=== PATIENT | male | born 1960 | race Caucasian/White ===

== ENCOUNTER 2016-12-03 14:46 | Emergency (ER) | payer OTHER ==
--- NOTE | 2016-12-03 15:46 | DIAGNOSTIC IMAGING REPORT ---
PROCEDURE: US VENOUS - RIGHT EXT INDICATION: SWELLING TECHNIQUE: Duplex sonography of the deep venous system in the right lower extremity was performed. Compression and augmentation techniques were used. COMPARISON: None. FINDINGS: Each interrogated segment of deep vein from the common femoral vein into the calf veins demonstrates normal compressibility, augmentation and/or color Doppler flow without filling defect. No evidence of significant soft-tissue edema, soft-tissue mass or cyst. IMPRESSION: 1. No deep venous thrombosis in the right lower extremity.
--- NOTE | 2016-12-03 16:28 | DIAGNOSTIC IMAGING REPORT ---
PROCEDURE: XR CHEST 1 VIEW INDICATION: SHORTNESS OF BREATH TECHNIQUE: Portable AP view (1610 hours). COMPARISON: None. FINDINGS: Allowing for suboptimal inspiration, lungs are clear. Heart and mediastinum are normal. Mild to moderate degenerative change of the thoracic spine. IMPRESSION: 1. Negative chest.
--- NOTE | 2016-12-03 18:06 | ED NURSING NOTES ---
Clinical Report - Nurses [facility] [address] [place] [address] 12/03/2016 14:48 Patient: OTTONIEL CAMPOS TRIAGE Chief Complaint: (pt in c/o pain to right food due to swelling, states swelling has been getting worse over the last month- states swlling in right leg is up to his knee, and left leg is also starting to swell). --15:07 Christina Holden R.N. 14:59 12/03/16. BP: 151/68. HR: 88. RR: 32. O2 saturation: 98% on room air. Temp: 97.9 F. Pain level now: 12/10. --15:07 Christina Holden R.N. Acuity: LEVEL 3. --15:07 Christina Holden R.N. Weight: 127 kg stated. Height/Length: 69 inches Per Patient. BMI: 41.4. --15:02 Christina Holden R.N. Medications Tudorza 400mcg. --15:15 Christina Holden R.N. Atenolol Oral 25 mg, daily. LamoTRIgine Oral (Tablet Dispersible 25 mg) 1 tablet, daily . PARoxetine HCl Oral (Tablet 10 mg) 1 tablet, daily. Phenytoin Oral 100 mg, 2x a day. Qvar Inhalation (Aerosol Solution 40 mcg/act). TraZODone HCl Oral 50 mg. --15:16 Christina Holden R.N. Ventolin HFA Inhalation. --15:16 Christina Holden R.N. Allergies morphine.(Anaphylaxis) --15:07 Christina Holden R.N. Penacillin- doesn't remember. --15:07 Christina Holden R.N. Codeine- GI upset. --15:08 Christina Holden R.N. History SURGERY HX: Laparotomy. Tonsillectomy. ( vein surg both ankles, cardiac stent). SOCIAL HX: Smoker- current status unknown (2ppd for 47 years, this is down from 4 ppd). No alcohol use or drug use. --15:07 Christina Holden R.N. PROBLEMS: Boarderline diabetic. --15:03 Christina Holden R.N. Myocardial Infarction. CVA - Cerebrovascular Accident. --15:03 Christina Holden R.N. 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 Hypertension. Bipolar Disorder. COPD - Chronic Obstructive Pulmonary Disease. --15:05 Christina Holden R.N. Seizure. --16:20 Christina Holden R.N. Interventions ID band on patient. To treatment room. --15:07 Christina Holden R.N. PHYSICAL ASSESSMENT 15:05. Ambulatory to room. Patient gowned. GENERAL / NEURO / PSYCH: Alert. Appears anxious. HEENT: Mucous membranes are pink. RESPIRATORY: Moderate respiratory distress. The patient can speak in full sentences. CVS: Capillary refill less than 2 seconds. GI / : Abdomen soft. SKIN: Skin is warm and dry. Swelling. ( Pt had 1+ tibial edema on right leg. c/o burning and tightness to right leg, and "starting to get tight" in the left leg). --15:10 Christina Holden R.N. NURSING PROGRESS NOTES 15:05. Oxygen administered. Monitoring of patient in place. Patient gowned. Head of bed elevated. Reassurance given. Patient identifiers checked. Call light placed in reach. Side rails up. Bed placed in lowest position. Patient ready for evaluation- chart flagged. --15:08 Christina Holden R.N. EKG time: (1521). EKG was ordered, performed by a tech and shown to the ED physician. --15:25 Victor Manuel Elizalde, MARY LOU Tech1 15:23. ( US at bedside to do exam). --15:26 Christina Holden R.N. 16:00 12/03/2016 Site #1 started via IV in the right hand with an 24g angiocath, with aseptic technique and good blood return; one attempt. Blood drawn: rainbow set and cultures x1. Labeled in the presence of the patient and sent to the lab. Saline lock flushed with saline. --16:18 Christina Holden R.N. 16:00. ( IV start and lab drawn). --16:19 Christina Holden R.N. 16:08. Portable chest x-ray ordered, performed and shown to the ED physician. --16:19 Christina Holden R.N. 17:04 12/03/16. Cardiac rhythm: sinus rhythm. The patient is resting quietly. Overall patient status is the same- he states feels the same. RESPIRATORY: No respiratory distress. SKIN: Skin is warm and dry. --17:04 Radha Bills R.N. 17:02 12/03/16. BP: 149/81. HR: 77. RR: 24. O2 saturation: 94% on room air. Pain level now: 0/10. --17:04 Radha Bills R.N. 17:40. ( Pt ambulated across simpson to bathroom, slight increase in resp effort noted. UA sent to lab. Pt asking when he gets to go home. ERMD notified). --17:53 Christina Holden R.N. 18:05 12/03/2016 Site #1 removed upon discharge. Bandaid applied. --18:39 Christina Holden R.N. 17:45 12/03/16. BP: 131/77. HR: 92. RR: 32. O2 saturation: 98% on room air. Temp: deferred. Pain level now: 0/10. Additional comments: watching t v in no acute distress. --18:49 Christina Holden R.N. DISPOSITION / DISCHARGE 18:15. Condition at departure: stable. No learning barriers present. Discharge instructions provided and reviewed with the patient. Reviewed medication(s) (cont home meds). Reviewed referrals (follow up with your PCP for further work up). Patient verbalized understanding. Written instructions provided in Icelandic. The patient was discharged home and unaccompanied at time of discharge. He left the Emergency Department ambulatory and via private vehicle. Patient driving. --18:47 Christina Holden R.N. 18:15 12/03/16. BP: 130/82. HR: 76. RR: 18. O2 saturation: 97% on room air. Temp: deferred. Pain level now: 0/10. --18:47 Christina Holden R.N. Locked/Released at 12/03/2016 18:49 by Christina Holden R.N.
--- NOTE | 2016-12-03 18:06 | ED ORDER SUMMARY ---
..... Patient: OTTONIEL CAMPOS OrderSheet Merged With [facility] VisitID: [id number] [address] [place] [address] 56y, M Registration Date/Time: 12/03/2016 ORDER SHEET Weight: 127.0 kg (stated) Allergies: morphine, Penacillin- doesn't remember, Codeine- GI upset GENERAL ORDERS: US Venous Right Urgent (15:15 12/03/2016 Hanna NATH) (Ack 15:17 AMNAoeralec) (16:17 DDean R.N.) EKG - ER Stat (15:23 12/03/2016 DDean R.N. per protocol) (15:26 PWeiler ER Tech1) Chest 1V Urgent (15:52 12/03/2016 Hanna NATH) (Ack 15:54 AMNAoerner) (16:18 DDean R.N.) Hydraulic Repairer (Continuous) (15:52 12/03/2016 Hanna NATH) (16:17 DDean R.N.) Cardiac Panel Stat (15:52 12/03/2016 Hanna NATH) (Ack 15:54 AMNAoerner) (16:17 KHoerner) BNP Urgent (15:52 12/03/2016 Hanna NATH) (Ack 15:54 AMNAoerner) (16:17 KHoerner) Pulse oximeter (15:52 12/03/2016 Hanna NATH) (16:17 DDean R.N.) MEDICATION ORDERS: IV FLUIDS: IV Saline Lock (15:52 12/03/2016 Hanna NATH) (16:18 DDean R.N.) ORDER SHEET NOTES: [Electronically signed by Christina Holden R.N. (18:49 12/03/2016)] [Electronically signed by Sigrid Pereira MD (14:15 12/13/2016)] [Electronically locked/signed by Christina Holden R.N. (18:49 12/03/2016)]
--- NOTE | 2016-12-03 18:06 | ED CLINICAL REPORT ---
Clinical Report - Physicians/Mid Levels [facility] [address] [place] [address] 12/03/2016 14:48 Patient: OTTONIEL CAMPOS Time Seen: 14:58. Arrived- By private vehicle. Historian- patient. HISTORY OF PRESENT ILLNESS Chief Complaint: DYSPNEA and LE swelling. This started about 1 month ago and is still present and worsening. The dyspnea is described as moderate. The dyspnea is worsened by walking (Elevation improves.). No cough, sputum production, fever, sweating episodes or wheezing. No chills, chest pain or discomfort, calf pain or anxiety. No dizziness, tingling, numbness or palpitations. He has had dyspnea on exertion and foot swelling. (Pt states the swelling has been most prominent on the R, but now involves the L, also.). Similar symptoms previously: Recent medical care: Not recently seen/assessed. REVIEW OF SYSTEMS The patient has not had weight loss. No muscle aches, eye irritation, sore throat, nasal discharge or sinus drainage. No nausea, vomiting, abdominal pain, diarrhea or black stools. No bloody stools, headache, fainting episodes, blurred vision or difficulty with urination. No skin rash, enlarged lymph nodes or joint pain. All systems otherwise negative, except as recorded above. 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 Hypertension. Bipolar Disorder. COPD - Chronic Obstructive Pulmonary Disease. Myocardial Infarction. CVA - Cerebrovascular Accident. Boarderline diabetic. Additional Surgeries: Laparotomy. Tonsillectomy. Medications: Ventolin HFA Inhalation. Atenolol Oral 25 mg, daily. LamoTRIgine Oral (Tablet Dispersible 25 mg) 1 tablet, daily . PARoxetine HCl Oral (Tablet 10 mg) 1 tablet, daily. Phenytoin Oral 100 mg, 2x a day. Qvar Inhalation (Aerosol Solution 40 mcg/act). TraZODone HCl Oral 50 mg. Tudorza 400mcg. Allergies: Codeine- GI upset. morphine.(Anaphylaxis) Penacillin- doesn't remember. SOCIAL HISTORY Heavy tobacco smoker. No alcohol use or drug use. ADDITIONAL NOTES The nursing notes have been reviewed. PHYSICAL EXAM Vital Signs: 12/03/2016 14:59 BP: 151/68. HR: 88. RR: 32. O2 saturation: 98%. Temp: 97.9 F. Pain level now: 12/10. Have been reviewed. Appearance: Alert. No acute distress. Eyes: Pupils equal, round and reactive to light. Eyes normal inspection. ENT: Nose normal. Neck: Normal inspection. CVS: Normal heart rate and rhythm. Heart sounds normal. Pulses normal. Respiratory: No respiratory distress. Breath sounds normal. Abdomen: Soft and nontender. Back: Normal inspection. Skin: Skin warm and dry. Normal skin color. No rash. Normal skin turgor. Extremities: Bilateral moderate non-pitting edema of the lower extremities involving both feet, both ankles and both lower legs. Extremities exhibit normal ROM. Neuro: Oriented X 3. No motor deficit. No sensory deficit. LABS, X-RAYS, AND EKG EKG: EKG time: (152). No acute process. Normal EKG. Normal sinus rhythm. Rate: 85. Normal P waves. Normal GENARO. Normal QRS complex. Normal axis. Normal ST and T waves, QT and QTc. Prior EKG unavailable. The study has been interpreted contemporaneously by me. The study has been independently viewed by me. The EKG appears to be a good tracing. I agree with and confirm the computer reading of the EKG. Rhythm Strip #1: Time: (1516). Rate= 87. Normal sinus rhythm. Regular rhythm. Narrow QRS complexes. No ectopy. Conduction normal. Normal ST segments and T waves. The study was interpreted by me. Chest X-ray: No acute disease. Normal lung markings present. Normal heart size. Mediastinum normal. Great vessels normal. Soft tissues normal. No infiltrate. No fracture. No bony lesion present. Views: AP (portable). Technique: good. The X-rays were independently viewed by me, interpreted by the radiologist and contemporaneously by me and discussed with the radiologist. Prior films were not available for comparison. Lower Extremity Sonography: Negative exam. No compression abnormality noted. Visualized common femoral artery and common femoral vein, superficial femoral artery and superficial femoral vein, deep femoral artery and deep femoral vein and popliteal artery and popliteal vein. Vessels patent. Study type: utilized duplex sonography. The exam was performed by a small engine technician. The study was interpreted by the radiologist and discussed with the radiologist. Prior studies were not available for comparison. Laboratory Tests: CBC w Diff: (AN: 12/03/2016 16:00) ( [facility] 12/03/2016 16:28) Final results Test Result Flag Units (Reference) WHITE BLOOD COUNT 9.0 K/uL (4.5-11.5) RED BLOOD COUNT 4.88 M/uL (4.50-5.90) HEMOGLOBIN 13.9 gm/dL (13.5-17.5) HEMATOCRIT 42.1 % (41.0-53.0) MEAN CELL VOLUME 86 fL (80-100) MEAN CORPUSCULAR HGB 28 pg (26-34) MEAN CORPUSCULAR HGB CONC 33 g/dL (31-37) RED CELL DISTRIBUTION WIDTH 14.4 % (11.6-14.8) PLATELET COUNT 212 K/uL (150-400) NEUTROPHIL % 61.5 % (50-75) LYMPH % 26.5 % (25-40) MONO % 8.3 % (3-14) EOSINOPHIL % 3.2 % (0-4) BASOPHIL % 0.5 % (0-2) BNP: (AN: 12/03/2016 16:00) ( [facility] 12/03/2016 16:50) Final results Test Result Flag Units (Reference) B-TYPE NATRIURETIC PEPTIDE 7.4 pg/ml (5-100) CHEM 13 PANEL: (AN: 12/03/2016 16:00) ( [facility] 12/03/2016 16:52) Final results Test Result Flag Units (Reference) GLUCOSE 101 mg/dL (70-110) BUN 15 mg/dL (7-18) CREATININE 0.7 mg/dL (0.6-1.3) Estimated GFR >60 mL/min Estimated GFR- >60 mL/min Note: Persistent reduction over 3 months in eGFR<60 mL/min/1.73 m2 defines CKD. Patients with eGFR values>=60 mL/min/1.73 m2 may also have CKD if evidence ofpersistent proteinuria. Additional information may be foundat www.kidney.org. SODIUM 142 mmol/L (136-145) POTASSIUM 4.4 mmol/L (3.5-5.1) CHLORIDE 104 mmol/L (98-107) CARBON DIOXIDE 33 H mmol/L (21-32) CALCIUM 8.8 mg/dL (8.5-10.1) TOTAL PROTEIN 7.1 g/dL (6.4-8.2) ALBUMIN 3.4 g/dL (3.3-5.0) BILIRUBIN, TOTAL 0.3 mg/dL (0.0-1.0) ALKALINE PHOSPHATASE 75 U/L (46-116) AST (SGOT) 12 L U/L (15-37) ALT (SGPT) 21 U/L (12-78) MAGNESIUM 2.2 mg/dL (1.8-2.4) CPK 38 U/L (24-260) TROPONIN I 0.05 ng/mL (0.00-1.5) TROPONIN REFERENCE RANGE:<0.1 NEGATIVE0.1-1.5 INDETERMINANT>1.5 POSITIVE . Pulse Oximetry: 12/03/2016 14:59 O2 saturation: 98%. (FIO2 - room air). Interpretation: normal. PROGRESS AND PROCEDURES Course of Care: Pt was worked up for his swelling, with consideration of CHF, renal failure, and DVT, among other things. Work-up was negative. No emergent condition identified. I have encouraged the pt to follow up with his PCP for further evaluation and treatment. Patient counseled in person regarding the patient's stable condition, test results, diagnosis and need for follow-up. Concerns were addressed. Old medical records reviewed. Disposition: Discharged. Condition: stable. CLINICAL IMPRESSION Bilateral pedal edema (right>left). INSTRUCTIONS Warnings: GENERAL WARNINGS: Return or contact your physician immediately if your condition worsens or changes unexpectedly, if not improving as expected, or if other problems arise. Your Current Medications: CONTINUE TAKING THE FOLLOWING MEDICATIONS: Atenolol Oral : 25 mg daily. LamoTRIgine Oral : Tablet Dispersible 25 mg, 1 tablet daily. PARoxetine HCl Oral : Tablet 10 mg, 1 tablet daily. Phenytoin Oral : 100 mg 2x a day. Qvar Inhalation : Aerosol Solution 40 mcg/act. TraZODone HCl Oral : 50 mg. Tudorza 400mcg*. Ventolin HFA Inhalation. Follow-up: Follow up with your doctor. Call for the next available appointment. Reason for referral: follow up ER visit. Understanding of the discharge instructions verbalized by patient. (Electronically signed by Sigrid Pereira MD 12/13/2016 14:15)
--- NOTE | 2016-12-03 18:06 | ED ORDER SUMMARY ---
..... Patient: OTTONIEL CAMPOS OrderSheet [facility] VisitID: [id number] [address] [place] [address] 56y, M Registration Date/Time: 12/03/2016 ORDER SHEET Weight: 127.0 kg (stated) Allergies: morphine, Penacillin- doesn't remember, Codeine- GI upset GENERAL ORDERS: US Venous Right Urgent (15:15 12/03/2016 Hanna NATH) (Ack 15:17 AMNAoeralec) (16:17 DDean R.N.) EKG - ER Stat (15:23 12/03/2016 DDean R.N. per protocol) (15:26 PWeiler ER Tech1) Chest 1V Urgent (15:52 12/03/2016 Hanna NATH) (Ack 15:54 AMNAoerner) (16:18 DDean R.N.) Disease Management Nurse (Continuous) (15:52 12/03/2016 Hanna NATH) (16:17 DDean R.N.) Cardiac Panel Stat (15:52 12/03/2016 Hanna NATH) (Ack 15:54 AMNAoerner) (16:17 KHoerner) BNP Urgent (15:52 12/03/2016 Hanna NATH) (Ack 15:54 AMNAoerner) (16:17 KHoerner) Pulse oximeter (15:52 12/03/2016 Hanna NATH) (16:17 DDean R.N.) MEDICATION ORDERS: IV FLUIDS: IV Saline Lock (15:52 12/03/2016 Hanna NATH) (16:18 DDean R.N.) ORDER SHEET NOTES: [Electronically signed by Christina Holden R.N. (18:49 12/03/2016)] [Electronically signed by Sigrid Pereira MD (14:15 12/13/2016)] [Electronically locked/signed by Christina Holden R.N. (18:49 12/03/2016)]
--- NOTE | 2016-12-03 18:06 | ED CLINICAL REPORT ---
Clinical Report - Physicians/Mid Levels [facility] [address] [place] [address] 12/03/2016 14:48 Patient: OTTONIEL CAMPOS Time Seen: 14:58. Arrived- By private vehicle. Historian- patient. HISTORY OF PRESENT ILLNESS Chief Complaint: DYSPNEA and LE swelling. This started about 1 month ago and is still present and worsening. The dyspnea is described as moderate. The dyspnea is worsened by walking (Elevation improves.). No cough, sputum production, fever, sweating episodes or wheezing. No chills, chest pain or discomfort, calf pain or anxiety. No dizziness, tingling, numbness or palpitations. He has had dyspnea on exertion and foot swelling. (Pt states the swelling has been most prominent on the R, but now involves the L, also.). Similar symptoms previously: Recent medical care: Not recently seen/assessed. REVIEW OF SYSTEMS The patient has not had weight loss. No muscle aches, eye irritation, sore throat, nasal discharge or sinus drainage. No nausea, vomiting, abdominal pain, diarrhea or black stools. No bloody stools, headache, fainting episodes, blurred vision or difficulty with urination. No skin rash, enlarged lymph nodes or joint pain. All systems otherwise negative, except as recorded above. 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 Hypertension. Bipolar Disorder. COPD - Chronic Obstructive Pulmonary Disease. Myocardial Infarction. CVA - Cerebrovascular Accident. Boarderline diabetic. Additional Surgeries: Laparotomy. Tonsillectomy. Medications: Ventolin HFA Inhalation. Atenolol Oral 25 mg, daily. LamoTRIgine Oral (Tablet Dispersible 25 mg) 1 tablet, daily . PARoxetine HCl Oral (Tablet 10 mg) 1 tablet, daily. Phenytoin Oral 100 mg, 2x a day. Qvar Inhalation (Aerosol Solution 40 mcg/act). TraZODone HCl Oral 50 mg. Tudorza 400mcg. Allergies: Codeine- GI upset. morphine.(Anaphylaxis) Penacillin- doesn't remember. SOCIAL HISTORY Heavy tobacco smoker. No alcohol use or drug use. ADDITIONAL NOTES The nursing notes have been reviewed. PHYSICAL EXAM Vital Signs: 12/03/2016 14:59 BP: 151/68. HR: 88. RR: 32. O2 saturation: 98%. Temp: 97.9 F. Pain level now: 12/10. Have been reviewed. Appearance: Alert. No acute distress. Eyes: Pupils equal, round and reactive to light. Eyes normal inspection. ENT: Nose normal. Neck: Normal inspection. CVS: Normal heart rate and rhythm. Heart sounds normal. Pulses normal. Respiratory: No respiratory distress. Breath sounds normal. Abdomen: Soft and nontender. Back: Normal inspection. Skin: Skin warm and dry. Normal skin color. No rash. Normal skin turgor. Extremities: Bilateral moderate non-pitting edema of the lower extremities involving both feet, both ankles and both lower legs. Extremities exhibit normal ROM. Neuro: Oriented X 3. No motor deficit. No sensory deficit. LABS, X-RAYS, AND EKG EKG: EKG time: (152). No acute process. Normal EKG. Normal sinus rhythm. Rate: 85. Normal P waves. Normal GENARO. Normal QRS complex. Normal axis. Normal ST and T waves, QT and QTc. Prior EKG unavailable. The study has been interpreted contemporaneously by me. The study has been independently viewed by me. The EKG appears to be a good tracing. I agree with and confirm the computer reading of the EKG. Rhythm Strip #1: Time: (1516). Rate= 87. Normal sinus rhythm. Regular rhythm. Narrow QRS complexes. No ectopy. Conduction normal. Normal ST segments and T waves. The study was interpreted by me. Chest X-ray: No acute disease. Normal lung markings present. Normal heart size. Mediastinum normal. Great vessels normal. Soft tissues normal. No infiltrate. No fracture. No bony lesion present. Views: AP (portable). Technique: good. The X-rays were independently viewed by me, interpreted by the radiologist and contemporaneously by me and discussed with the radiologist. Prior films were not available for comparison. Lower Extremity Sonography: Negative exam. No compression abnormality noted. Visualized common femoral artery and common femoral vein, superficial femoral artery and superficial femoral vein, deep femoral artery and deep femoral vein and popliteal artery and popliteal vein. Vessels patent. Study type: utilized duplex sonography. The exam was performed by a milieu technician. The study was interpreted by the radiologist and discussed with the radiologist. Prior studies were not available for comparison. Laboratory Tests: CBC w Diff: (AN: 12/03/2016 16:00) ( [facility] 12/03/2016 16:28) Final results Test Result Flag Units (Reference) WHITE BLOOD COUNT 9.0 K/uL (4.5-11.5) RED BLOOD COUNT 4.88 M/uL (4.50-5.90) HEMOGLOBIN 13.9 gm/dL (13.5-17.5) HEMATOCRIT 42.1 % (41.0-53.0) MEAN CELL VOLUME 86 fL (80-100) MEAN CORPUSCULAR HGB 28 pg (26-34) MEAN CORPUSCULAR HGB CONC 33 g/dL (31-37) RED CELL DISTRIBUTION WIDTH 14.4 % (11.6-14.8) PLATELET COUNT 212 K/uL (150-400) NEUTROPHIL % 61.5 % (50-75) LYMPH % 26.5 % (25-40) MONO % 8.3 % (3-14) EOSINOPHIL % 3.2 % (0-4) BASOPHIL % 0.5 % (0-2) BNP: (AN: 12/03/2016 16:00) ( [facility] 12[facility] 16[facility]50) Final results Test Result Flag Units (Reference) B-TYPE NATRIURETIC PEPTIDE 7.4 pg/ml (5-100) CHEM 13 PANEL: (AN: 12/03/2016 16:00) ( [facility] 12/03/2016 16:52) Final results Test Result Flag Units (Reference) GLUCOSE 101 mg/dL (70-110) BUN 15 mg/dL (7-18) CREATININE 0.7 mg/dL (0.6-1.3) Estimated GFR >60 mL/min Estimated GFR- >60 mL/min Note: Persistent reduction over 3 months in eGFR<60 mL/min/1.73 m2 defines CKD. Patients with eGFR values>=60 mL/min/1.73 m2 may also have CKD if evidence ofpersistent proteinuria. Additional information may be foundat www.kidney.org. SODIUM 142 mmol/L (136-145) POTASSIUM 4.4 mmol/L (3.5-5.1) CHLORIDE 104 mmol/L (98-107) CARBON DIOXIDE 33 H mmol/L (21-32) CALCIUM 8.8 mg/dL (8.5-10.1) TOTAL PROTEIN 7.1 g/dL (6.4-8.2) ALBUMIN 3.4 g/dL (3.3-5.0) BILIRUBIN, TOTAL 0.3 mg/dL (0.0-1.0) ALKALINE PHOSPHATASE 75 U/L (46-116) AST (SGOT) 12 L U/L (15-37) ALT (SGPT) 21 U/L (12-78) MAGNESIUM 2.2 mg/dL (1.8-2.4) CPK 38 U/L (24-260) TROPONIN I 0.05 ng/mL (0.00-1.5) TROPONIN REFERENCE RANGE:<0.1 NEGATIVE0.1-1.5 INDETERMINANT>1.5 POSITIVE . Pulse Oximetry: 12/03/2016 14:59 O2 saturation: 98%. (FIO2 - room air). Interpretation: normal. PROGRESS AND PROCEDURES Course of Care: Pt was worked up for his swelling, with consideration of CHF, renal failure, and DVT, among other things. Work-up was negative. No emergent condition identified. I have encouraged the pt to follow up with his PCP for further evaluation and treatment. Patient counseled in person regarding the patient's stable condition, test results, diagnosis and need for follow-up. Concerns were addressed. Old medical records reviewed. Disposition: Discharged. Condition: stable. CLINICAL IMPRESSION Bilateral pedal edema (right>left). INSTRUCTIONS Warnings: GENERAL WARNINGS: Return or contact your physician immediately if your condition worsens or changes unexpectedly, if not improving as expected, or if other problems arise. Your Current Medications: CONTINUE TAKING THE FOLLOWING MEDICATIONS: Atenolol Oral : 25 mg daily. LamoTRIgine Oral : Tablet Dispersible 25 mg, 1 tablet daily. PARoxetine HCl Oral : Tablet 10 mg, 1 tablet daily. Phenytoin Oral : 100 mg 2x a day. Qvar Inhalation : Aerosol Solution 40 mcg/act. TraZODone HCl Oral : 50 mg. Tudorza 400mcg*. Ventolin HFA Inhalation. Follow-up: Follow up with your doctor. Call for the next available appointment. Reason for referral: follow up ER visit. Understanding of the discharge instructions verbalized by patient. (Electronically signed by Sigrid Pereira MD 12/13/2016 14:15)
--- NOTE | 2016-12-13 14:15 | ED MAR SUMMARY ---
..... Medication Administration Record [facility] [address] [place], [place] [id number] Patient: OTTONIEL CAMPOS Visit ID: [id number] 56y, M Weight: 127.0 kg Height/Length: 69 in BMI: 41.4 ALLERGIES: Codeine- GI upset, Penacillin- doesn't remember, morphine
--- NOTE | 2016-12-13 14:15 | ED DISCHARGE INSTRUCTIONS ---
Patient: OTTONIEL CAMPOS General Instructions [facility] VisitID: [id number] [place] [address] 56y, M Registration Date/Time: 12/03/2016 Bilateral pedal edema (right>left). INSTRUCTIONS Warnings: GENERAL WARNINGS: Return or contact your physician immediately if your condition worsens or changes unexpectedly, if not improving as expected, or if other problems arise. Your Current Medications: CONTINUE TAKING THE FOLLOWING MEDICATIONS: Atenolol Oral : 25 mg daily. LamoTRIgine Oral : Tablet Dispersible 25 mg, 1 tablet daily. PARoxetine HCl Oral : Tablet 10 mg, 1 tablet daily. Phenytoin Oral : 100 mg 2x a day. Qvar Inhalation : Aerosol Solution 40 mcg/act. TraZODone HCl Oral : 50 mg. Tudorza 400mcg*. Ventolin HFA Inhalation. Follow-up: Follow up with your doctor. Call for the next available appointment. Reason for referral: follow up ER visit. Understanding of the discharge instructions verbalized by patient. ADDITIONAL INFORMATION Leg Swelling (Unilateral) Swelling of the arms, feet, ankles, and legs is called edema. It is due to excess fluid collecting in the tissues. Because of gravity, excess fluid in the body settles to the lowest part. That is why the legs and feet are most affected. Some of the causes for swelling in one leg only include: Foot or leg infection Venous insufficiency (congestion of blood in the deep veins of the legs) Varicose veins (dilated veins of the lower leg) Garters or anything that constricts the leg Insect bite or sting on the foot or leg Injury or recent surgery on the foot or leg Blood clot in the deep veins of the leg Medical treatment will depend on the cause of your swelling. Home Care: Do not wear garments that constrict your legs (such as garters). Elevate your legs while lying or sitting. Take any medicines as directed. If infection, injury, or recent surgery is the cause for your swelling, stay off your legs as much as possible until symptoms improve. If your doctor says that venous insufficiency or varicose veins is the cause of leg swelling, do not sit or road crossing guard one place for long periods of time. Take breaks and walk around every few hours. Brisk walking is a good exercise and helps circulate the congested bloodin your leg. Talk to your doctor about the use of support stockings to prevent daytime leg swelling. Follow Up with your doctor or as advised by our staff. Get Prompt Medical Attention if any of the following occur: Shortness of breath or chest pain with breathing Coughing up blood Increased swelling, warmth or redness of the leg, ankle or foot Calf pain Fever of 100.4F (38C) or higher, or as directed by your healthcare provider Weakness, dizziness or fainting You have been given the following additional information: Peripheral Edema, Unilateral (Electronically signed by Sigrid Pereira MD 12/13/2016 14:15)
--- NOTE | 2016-12-13 14:15 | ED MED RECONCILIATION SUMMARY ---
Patient: OTTONIEL CAMPOS Medication Reconciliation Report [facility] VisitID: [id number] [address] [place] [address] 56y, M Registration Date/Time: 12/03/2016 Weight: 127.0 kg Height/Length: 69 in. BMI: 41.4 ALLERGIES: Codeine- GI upset, morphine, Penacillin- doesn't remember The patient's Home Medications are listed below: CONTINUE TAKING THE FOLLOWING MEDICATIONS: Atenolol Oral 25 mg, daily LamoTRIgine Oral (25 mg) 1 tablet, daily PARoxetine HCl Oral (10 mg) 1 tablet, daily Phenytoin Oral 100 mg, 2x a day Qvar Inhalation (40 mcg/act) TraZODone HCl Oral 50 mg Tudorza 400mcg Ventolin HFA Inhalation The source(s) of the original Home Medication information: Not obtained. The following Medications were given to the patient in the Emergency Department: None. The following Medications were prescribed to the patient: None.
--- NOTE | 2016-12-13 14:15 | ED MAR SUMMARY ---
..... Medication Administration Record [facility] [address] [place], [place] [id number] Patient: OTTONIEL CAMPOS Visit ID: [id number] 56y, M Weight: 127.0 kg Height/Length: 69 in BMI: 41.4 ALLERGIES: Codeine- GI upset, Penacillin- doesn't remember, morphine
--- NOTE | 2016-12-13 14:15 | ED MED RECONCILIATION SUMMARY ---
Patient: OTTONIEL CAMPOS Medication Reconciliation Report [facility] VisitID: [id number] [address] [place] [address] 56y, M Registration Date/Time: 12/03/2016 Weight: 127.0 kg Height/Length: 69 in. BMI: 41.4 ALLERGIES: Codeine- GI upset, morphine, Penacillin- doesn't remember The patient's Home Medications are listed below: CONTINUE TAKING THE FOLLOWING MEDICATIONS: Atenolol Oral 25 mg, daily LamoTRIgine Oral (25 mg) 1 tablet, daily PARoxetine HCl Oral (10 mg) 1 tablet, daily Phenytoin Oral 100 mg, 2x a day Qvar Inhalation (40 mcg/act) TraZODone HCl Oral 50 mg Tudorza 400mcg Ventolin HFA Inhalation The source(s) of the original Home Medication information: Not obtained. The following Medications were given to the patient in the Emergency Department: None. The following Medications were prescribed to the patient: None.
--- NOTE | 2016-12-13 14:15 | ED DISCHARGE INSTRUCTIONS ---
Patient: OTTONIEL CAMPOS General Instructions [facility] VisitID: [id number] [place] [address] 56y, M Registration Date/Time: 12/03/2016 Bilateral pedal edema (right>left). INSTRUCTIONS Warnings: GENERAL WARNINGS: Return or contact your physician immediately if your condition worsens or changes unexpectedly, if not improving as expected, or if other problems arise. Your Current Medications: CONTINUE TAKING THE FOLLOWING MEDICATIONS: Atenolol Oral : 25 mg daily. LamoTRIgine Oral : Tablet Dispersible 25 mg, 1 tablet daily. PARoxetine HCl Oral : Tablet 10 mg, 1 tablet daily. Phenytoin Oral : 100 mg 2x a day. Qvar Inhalation : Aerosol Solution 40 mcg/act. TraZODone HCl Oral : 50 mg. Tudorza 400mcg*. Ventolin HFA Inhalation. Follow-up: Follow up with your doctor. Call for the next available appointment. Reason for referral: follow up ER visit. Understanding of the discharge instructions verbalized by patient. ADDITIONAL INFORMATION Leg Swelling (Unilateral) Swelling of the arms, feet, ankles, and legs is called edema. It is due to excess fluid collecting in the tissues. Because of gravity, excess fluid in the body settles to the lowest part. That is why the legs and feet are most affected. Some of the causes for swelling in one leg only include: Foot or leg infection Venous insufficiency (congestion of blood in the deep veins of the legs) Varicose veins (dilated veins of the lower leg) Garters or anything that constricts the leg Insect bite or sting on the foot or leg Injury or recent surgery on the foot or leg Blood clot in the deep veins of the leg Medical treatment will depend on the cause of your swelling. Home Care: Do not wear garments that constrict your legs (such as garters). Elevate your legs while lying or sitting. Take any medicines as directed. If infection, injury, or recent surgery is the cause for your swelling, stay off your legs as much as possible until symptoms improve. If your doctor says that venous insufficiency or varicose veins is the cause of leg swelling, do not sit or window and door installer one place for long periods of time. Take breaks and walk around every few hours. Brisk walking is a good exercise and helps circulate the congested bloodin your leg. Talk to your doctor about the use of support stockings to prevent daytime leg swelling. Follow Up with your doctor or as advised by our staff. Get Prompt Medical Attention if any of the following occur: Shortness of breath or chest pain with breathing Coughing up blood Increased swelling, warmth or redness of the leg, ankle or foot Calf pain Fever of 100.4F (38C) or higher, or as directed by your healthcare provider Weakness, dizziness or fainting You have been given the following additional information: Peripheral Edema, Unilateral (Electronically signed by Sigrid Pereira MD 12/13/2016 14:15)
== END 2016-12-03 18:15 | disposition home or self-care (01) ==
LOC: ED SRH 14:46
DX: R60.0 Localized edema (principal); R06.00 Dyspnea, unspecified; I10 Essential (primary) hypertension; F17.210 Nicotine dependence, cigarettes, uncomplicated; I25.2 Old myocardial infarction; Z86.73 Personal history of transient ischemic attack (TIA), and cerebral infarction without residual deficits; Z88.0 Allergy status to penicillin; Z88.5 Allergy status to narcotic agent; J44.9 Chronic obstructive pulmonary disease, unspecified; Z79.51 Long term (current) use of inhaled steroids